=== PATIENT | female | born 1960 ===

== ENCOUNTER 2019-11-23 14:28 | Outpatient (CLI) | payer OTHER ==
--- NOTE | 2019-11-23 16:30 | Consultation ---
DATE OF CONSULTATION: 11/23/2019 GASTROENTEROLOGY CONSULTATION CHIEF COMPLAINT: Chronic GERD, also need for screening colonoscopy. PAST MEDICAL HISTORY: 1. Hypertension. 2. Diabetes. 3. GERD. PAST SURGICAL HISTORY: Hysterectomy in 1991. MEDICATIONS: Please see medication reconciliation list. FAMILY HISTORY: No family history of GI malignancies. SOCIAL HISTORY: The patient denies any tobacco, alcohol, or drug abuse. ALLERGIES: No known allergies. REVIEW OF SYSTEMS: Positive for severe GERD. The patient actually recently was seen in the [facility] ER for that. Abdominal pain. Constipation. Bloating. Burping. Shortness of breath. PHYSICAL EXAMINATION: VITAL SIGNS: Temperature 97.5, blood pressure 154/84, pulse is 104, respirations 20. HEENT: Normocephalic and atraumatic. Sclerae anicteric. NECK: Supple. No evidence of obvious lymphadenopathy. CARDIOVASCULAR: Regular rate and rhythm. Plus S1 and S2. LUNGS: Clear to auscultation bilaterally. ABDOMEN: Positive bowel sounds. Soft and nontender. No rebound. No guarding. No peritoneal sign. EXTREMITIES: No cyanosis, no clubbing, no edema. ASSESSMENT AND PLAN: This is a 59-year-old female with chronic GERD, severe, on omeprazole with minimum improvement, needs endoscopy for that. Also needs a screening colonoscopy. The patient was given instruction for both and risks and benefits of procedure were explained to her. We will schedule her when the authorization is obtained. Linwood Lopez M.D. DR: ANNA JOB#: [id number] CC:
== END 2019-11-23 16:28 | disposition home or self-care (01) ==
LOC: PAN 14:28
DX: K21.9 Gastro-esophageal reflux disease without esophagitis (principal); I10 Essential (primary) hypertension; E11.9 Type 2 diabetes mellitus without complications; Z90.710 Acquired absence of both cervix and uterus; R10.9 Unspecified abdominal pain; K59.00 Constipation, unspecified; R14.0 Abdominal distension (gaseous); R06.02 Shortness of breath
CPT/HCPCS: G0463

== ENCOUNTER 2020-01-03 12:50 | Outpatient (CLI) | payer OTHER ==
[~2020-01-03 12:50] MED LIST: AMLODIPINE BESYL5 MG ORAL; ATORVASTATIN CA80 MG ORAL; METFORMIN HCL500 M1 ORAL; PANTOPRAZOLE SO40 MG ORAL; REGULAR INSULIN; TRULICITY1.5 MG/0.5 SQ
--- NOTE | 2020-01-03 15:41 | General Progress Note ---
Subjective ROS Limited/Unobtainable: No Allergies: Coded Allergies: No Known Allergies (Unverified , 11/29/19) Objective General Appearance: alert EENT: TMs normal Neck: supple Cardiovascular: normal rate Respiratory/Chest: decreased breath sounds Abdomen: normal bowel sounds, non tender, soft Extremities: non-tender Assessment/Plan Assessment/Plan: s/p EGd and colonoscopy gastritis HH hemorrhoids one colon poly repeat colon in 5 years Linwood Lopez MD Jan 03, 2020 15:41
== END 2020-01-03 14:50 | disposition home or self-care (01) ==
LOC: PAN 12:50
DX: K29.70 Gastritis, unspecified, without bleeding (principal); K44.9 Diaphragmatic hernia without obstruction or gangrene; K64.9 Unspecified hemorrhoids; K63.5 Polyp of colon
CPT/HCPCS: 99212